=== PATIENT | female | born 1990 | race Caucasian/White ===

== ENCOUNTER → 2018-08-22 | Outpatient (CLI) | payer OTHER ==
--- NOTE | 2018-08-22 14:07 | EST ---
EXERCISE STRESS AGE: 28 SEX: F HT: 64" WT: 128 PROTOCOL: Stress Test STAGE: 4 DURATION OF EXERCISE: 10:00 HEART RATE REST: 98 BLOOD PRESSURE REST: 135/64 MAXIMUM HEART RATE ACHIEVED: 173 MAXIMUM BLOOD PRESSURE: 140/66 85% MPHR: 162 100% MPHR: 190 METS: 11.7 INDICATIONS: Palpitations. CLINICAL INFORMATION: Baseline rhythm is sinus mechanism, rate of 98, right axis deviation, normal intervals. Baseline blood pressure 135/64 mmHg. Patient exercised on Brenden protocol for 10 minute reaching peak rate 173 beats per minute which is equal to 91% maximum predicted heart rate. Peak blood pressure 140/66 mmHg. Test was terminated due to fatigue. There was no chest pain. Electrocardiographic monitoring revealed no evidence of diagnostic ischemic ST deviation. CONCLUSION: 1. Good exercise tolerance with no symptoms of chest pain. 2. Normal electrocardiograph stress testing with no evidence of stress-induced ischemia. MMODL / IJN: [id number] /
== END | disposition home or self-care (01) ==
LOC: RADNMMAIN 08:42
PROVIDERS: ATTEND Family Medicine
DX: R00.2 Palpitations (principal)
CPT/HCPCS: 93017; 93270; 93271